=== PATIENT | female | born 1985 | race Caucasian/White ===

== ENCOUNTER 2021-02-02 15:37 | Emergency (ER) | payer MEDICAID ==
[2021-02-02 15:55] VITALS: O2SAT 99
[2021-02-02] MEDS ORDERED: TORAdol 30 mg Injection IM ONE (15:57)
[2021-02-02] MEDS ORDERED: TORAdol 30 mg Injection ONE (16:14)
--- NOTE | 2021-02-02 16:30 | ERPHSYRPT ---
- History of Present Illness Time Seen by Provider: 02/02/21 15:52 Source: patient Exam Limitations: no limitations Patient Subjective Stated Complaint: L foot pain Triage Nursing Assessment: pt to ED c/o L foot pain after dropping heavy box on foot Sunday. pt states she was off work for a few days so she just rest and elevated foot which seemed to help. pt reports she did go to work today and had to stand/walk on it all day which has caused increase in pain and swelling compared to last few days. rates 8/10 pain when ambulating, no pain at rest. noted welling and redness to top of L foot as well as abrasion to L foot. Physician History: 35 years old female presented to the ER with chief complaint of left foot pain and swelling for the last 4 days after she dropped a heavy cardboard box on her left foot 4 days ago. Since then she is having increasing pain and swelling extending from distal foot to proximal, exacerbated with movements/ambulation and today she was not able to bear much weight on it. Denies any fever or chills. She does have athlete's foot with some abrasion. Denies any fever or chills. No pain in the ankle. Method of Injury: direct blow Occurred: days ago (4) Quality: sharpness Severity of Pain-Max: severe Severity of Pain-Current: severe Lower Extremities Pain: foot: left Modifying Factors: Improves With: immobilization, rest. Worsens With: movement Associated Symptoms: unable to bear weight Allergies/Adverse Reactions: No Known Drug Allergies Allergy (Verified 02/02/21 15:57) Home Medications: Buprenorphine HCl/Naloxone HCl [Suboxone 8 mg-2 mg Tablet Sl] 1 each SL DAILY 02/02/21 [History] Hx Tetanus, Diphtheria Vaccination/Date Given: No Hx Influenza Vaccination/Date Given: No Hx Pneumococcal Vaccination/Date Given: No Immunizations Up to Date: No Travel Risk - International Travel Have you traveled outside of the country in past 3 weeks: No - Coronavirus Screening Are you exhibiting any of the following symptoms?: No Close contact with a COVID-19 positive Pt in past 14-21 Days: No - Vaccine Status Have you recieved a Covid-19 vaccination: Yes Valet Attendant: Unknown - Vaccination Dates Dates if Unknown: 2 dose shot, unk which, has not gotten second dose yet - Review of Systems Constitutional: No Symptoms Eyes: No Symptoms Ears, Nose, & Throat: No Symptoms Respiratory: No Symptoms Cardiac: No Symptoms Abdominal/Gastrointestinal: No Symptoms Genitourinary Symptoms: No Symptoms Musculoskeletal: Injury, Joint Swelling Skin: Induration Neurological: No Symptoms Psychological: No Symptoms Endocrine: No Symptoms Hematologic/Lymphatic: No Symptoms Immunological/Allergic: No Symptoms - Past Medical History Pertinent Past Medical History: Yes Neurological History: No Pertinent History ENT History: No Pertinent History Cardiac History: No Pertinent History Respiratory History: No Pertinent History Endocrine Medical History: No Pertinent History Musculoskeletal History: No Pertinent History History: No Pertinent History Psycho-Social History: No Pertinent History Female Reproductive Disorders: No Pertinent History, Other Other Medical History: Polycystic Ovaries - Past Surgical History Past Surgical History: No Neuro Surgical History: No Pertinent History Cardiac: No Pertinent History Respiratory: No Pertinent History Gastrointestinal: No Pertinent History Genitourinary: No Pertinent History Musculoskeletal: No Pertinent History Female Surgical History: No Pertinent History - Social History Smoking Status: Current every day smoker How long have you smoked: 10 Exposure to second hand smoke: Yes Drug Use: none Patient Lives Alone: No - Female History Hx Last Menstrual Period: last month Hx Now: No ("cant have anymore kids") - Nursing Vital Signs Nursing Vital Signs: Initial Vital Signs Temperature 98.6 F 02/02/21 15:48 Pulse Rate 88 02/02/21 15:48 Respiratory Rate 18 02/02/21 15:48 Blood Pressure 157/90 02/02/21 15:48 O2 Sat by Pulse Oximetry 99 02/02/21 15:48 Pain Scale Pain Intensity 0 - Physical Exam General Appearance: no apparent distress, alert Eyes, Ears, Nose, Throat Exam: normal ENT inspection Neck Exam: normal inspection Cardiovascular/Respiratory Exam: normal breath sounds, regular rate/rhythm Back Exam: normal inspection, normal range of motion Legs Exam: bilateral leg: non-tender, normal inspection, normal range of motion Knees Exam: bilateral knee: non-tender, normal inspection, normal range of motion, no evidence of injury Ankle Exam: bilateral ankle: non-tender, normal inspection, normal range of motion, no evidence of injury Foot Exam: right foot: non-tender, normal inspection, normal range of motion, no evidence of injury, left foot: infection (Athlete's foot with abrasion at first webspace), pain, soft tissue tenderness, swelling (Dorsum of foot. Warm tender to touch. Indurated.) Neuro/Tendon Exam: normal sensation, normal motor functions, normal tendon functions Mental Status Exam: alert, oriented x 3, cooperative Skin Exam: normal color SpO2 Interpretation: normal SpO2: 99 O2 Delivery: Room Air Ordered Tests: Medication Summary Discontinued Medications Generic Name Dose Route Start Last Admin Trade Name Freq PRN Reason Stop Dose Admin Ketorolac Tromethamine 30 mg 02/02/21 15:57 02/02/21 16:16 Toradol 30 Mg Injection IM 02/02/21 15:58 30 mg STAT ONE Administration Ketorolac Tromethamine Confirm 02/02/21 16:14 Toradol 30 Mg Injection Administered 02/02/21 16:15 Dose 30 mg .ROUTE .STK-MED ONE - Progress Progress: improved, pain not gone completely Progress Note: 02/02/21 16:28 Given Toradol for symptomatic relief. X-rays ruled out fracture dislocation. I believe patient has a small abrasion with secondary bacterial infection. We will start her on clindamycin, recommended staying off of feet and outpatient podiatry follow-up. Counseled pt/family regarding: diagnosis, need for follow-up, rad results - Departure Departure Disposition: Home Clinical Impression: Cellulitis of foot Contusion, foot Qualifiers: Encounter type: initial encounter Laterality: left Qualified Code(s): S90.32XA - Contusion of left foot, initial encounter Condition: Stable Critical Care Time: No Referrals: LEON SIMS [ACTIVE STAFF] - (1-2 days for reevaluation) MARIZOL JAMES DPM [ACTIVE STAFF] - (Tomorrow for reevaluation) Instructions: Contusion (DC), Foot Sprain (DC) Additional Instructions: Keep it elevated. Apply ice. Take ibuprofen along with [place] as needed for pain. Continue with antibiotics. Follow-up with primary care and podiatry for reevaluation in 1 to 2 days. Return to ER for worsening pain swelling/fever chills etc. Prescriptions: Ibuprofen 600 mg PO Q6HPRN PRN 10 Days #20 tablet PRN Reason: Pain Hydrocodone/APAP 5/325 [P[place] 5/325 mg] 1 each PO Q6H PRN PRN #10 tablet MDD 4 PRN Reason: Pain Clindamycin HCl 150 mg [Cleocin 150 mg Capsule] 2 cap PO QID #56 capsule
[2021-02-02 17:35] VITALS: BP 120/70; PULSE 74
--- NOTE | 2021-02-02 17:48 | XRAY ---
Exam: 3 views of the left foot from 02/02/2021. Comparison: None. Indication: Dropped a box on left foot 4 days ago; pain and redness around toes. Findings: AP, oblique, and lateral radiographs of the left foot were obtained. I see no evidence of acute fracture or dislocation, particularly involving the distal metatarsals or toes. There is some mild soft tissue prominence or swelling overlying the dorsal aspect of the distal left forefoot. No radiopaque soft tissue foreign body is seen. A moderate sized plantar left calcaneal spur is seen. There is also a minimal posterior calcaneal enthesophyte. The plantar arch is unremarkable. Impression: 1. No acute left foot fracture or dislocation is seen. 2. I do note some mild soft tissue prominence or soft tissue swelling overlying the dorsal aspect of the distal left forefoot. No radiopaque soft tissue foreign body is seen. Correlate clinically. 3. Left calcaneal spurring, as discussed.
== END 2021-02-02 18:10 | disposition home or self-care (01) ==
LOC: ED 15:37
DX: L03.116 Cellulitis of left lower limb (principal); S90.32XA Contusion of left foot, initial encounter; M79.672 Pain in left foot; W20.8XXA Other cause of strike by thrown, projected or falling object, initial encounter
CPT/HCPCS: 73630; 96372; 99284; J1885